=== PATIENT | male | born 1995 | race Caucasian/White ===

== ENCOUNTER 2019-07-19 04:54 | Emergency (ER) | payer SELFPAY ==
[2019-07-19] VITALS (9 sets, daily range): BP systolic 126–175; BP diastolic 96–126; PULSE 69–98; RESP 15–18; TEMP 37; O2SAT 97–100; BMI 25.8
--- NOTE | 2019-07-19 05:00 | CTR_ITS ---
PROCEDURE INFORMATION: Exam: CT Abdomen And Pelvis With Contrast Exam date and time: 07/19/2019 5:20 AM Age: 23 years old Clinical indication: Abdominal pain; Generalized; Additional info: Abd pain TECHNIQUE: Imaging protocol: Computed tomography of the abdomen and pelvis with intravenous contrast. Total DLP: 688.95 mGy-cm Radiation optimization: All CT scans at this facility use at least one of these dose optimization techniques: automated exposure control; mA and/or kV adjustment per patient size (includes targeted exams where dose is matched to clinical indication); or iterative reconstruction. Contrast material: OMNI 300; Contrast volume: 95 ml; Contrast route: 18G; COMPARISON: No relevant prior studies available. FINDINGS: Liver: Normal. No mass. Gallbladder and bile ducts: No calcified stones. No pericholecystic inflammatory changes. No ductal dilation. Pancreas: Normal. No ductal dilation. Spleen: No splenomegaly. Adrenals: Normal. No mass. Kidneys and ureters: Bilateral simple renal cysts measuring up to 16 [id number] not required. Stomach and bowel: No obstruction. No wall thickening. Appendix: Normal appendix. Intraperitoneal space: No free air. No significant fluid collection. Vasculature: No abdominal aortic aneurysm. Lymph nodes: No enlarged lymph nodes. Bladder: Unremarkable as visualized. Reproductive: Unremarkable as visualized. Bones/joints: Unremarkable. No acute fracture. Soft tissues: Unremarkable. CT/CT abdomen pelvis w con* [id number] IMPRESSION: No acute abnormality detected. Radiation Dose CTDIVOL = (mGy): DLP = 688.95 (mGy-cm)
--- NOTE | 2019-07-19 05:02 | ED_ITS ---
Documented by User: Kam Anderson MD 07/19/19 05:33 HPI - Abdominal Pain General: Chief Complaint: Abdominal Pain Stated Complaint: ABD PAIN Time Seen by Provider: 07/19/19 05:00 Source: patient Mode of arrival: ambulatory Limitations: no limitations History of Present Illness: HPI narrative: 23-year-old male has been having left lower abdominal pain that radiates into his testicle for the last week. Patient states that the pain got much worse tonight. States pain is currently a 9 out of 10. He has had nausea and vomiting. He denies any history of kidney stones. He denies any penile discharge. MD elicited complaint: abdominal pain Pertinent past history: none Onset (ago): day(s) Pain Consistency: constant Location: LLQ Severity: severe Quality: stabbing Radiation: none Exacerbating factors: nothing Relieving factors: nothing Associated Symptoms: Reports nausea and vomiting; Denies chills, diarrhea, dysuria and fever(s) Review of Systems Const: Denies: fever, chills, body aches or change in appetite Eyes: Denies: blurry vision or eye discomfort ENMT: Denies: throat pain or dental pain Card: Denies: chest pain Resp: Denies: shortness of breath GI: Reports: abdominal pain, nausea and vomiting; Denies: diarrhea : Reports: testicular pain; Denies: painful urination Musc: Denies: neck pain or back pain Skin/Breast: Denies: rash Neuro: Denies: headache Psych: Denies: depression Gigi/Lymph: Denies: easy bruising All/Imm: Denies: hives PFSH ED PFSH: Social History Smoking and tobacco status: current every day smoker Physical Exam Const: COMMON NORMALS: no apparent distress, oriented x3 and healthy appearing HENMT: COMMON NORMALS: normocephalic and head/scalp atraumatic HEAD & SCALP: normocephalic and atraumatic Eye: COMMON NORMALS: PERRL and EOMs intact bilaterally PUPIL: Yes PERRL Neck/C-Spine: COMMON NORMALS: full ROM and supple Chest: COMMONS NORMALS: inspection of chest normal and palpation of chest normal Resp: COMMON NORMALS: normal respiratory effort, no retractions, no use of accessory muscles and clear to auscultation bilaterally AUSCULTATION: clear to auscultation bilaterally Cardio: COMMON NORMALS: regular rate, regular rhythm and no murmurs RATE: regular rate RHYTHM: regular rhythm GI: COMMON NORMALS: normal to inspection, nondistended, normoactive bowel sounds, soft to palpation and no masses PALPATION: Yes soft OTHER: llq tenderness : OTHER: no testicle swelling, slight tenderness to left testicle Extremity: COMMON NORMALS: normal to inspection and full ROM Neuro: COMMON NORMALS: oriented x3, moves all extremities and no focal motor deficits Psych: COMMON NORMALS: mental status grossly normal, thought process normal and cooperative THOUGHT PROCESS: normal thought process Skin: COMMON NORMALS: no rashes or lesions noted and no wounds GENERAL SKIN EXAM: no rashes or lesions noted Course Vital Signs: Vital signs: Vital Signs Temperature 98.6 F 07/19/19 04:56 Pulse Rate 98 07/19/19 09:23 Respiratory Rate 16 07/19/19 09:23 Blood Pressure 153/104 07/19/19 09:23 Pulse Oximetry 99 07/19/19 09:23 MDM - Abdominal Pain MDM Narrative: Medical decision making narrative: Patient presents with abdominal pain along with testicle pain. Patient does have some tenderness on his abdomen and testicle. We will get a CT scan of his abdomen and an ultrasound of his testicle. Patient's care turned over to Dr. Yepez to follow this along with labs. Lab Data: Labs: Lab Results 07/19/19 07/19/19 07/19/19 Range/Units 05:10 05:49 06:55 WBC 12.4 H (4.0-10.0) 10^3/ uL RBC 5.40 H (4.1-5.3) 10^6/u L Hgb 15.5 (11.7-16.6) g/dL Hct 46.4 (42.0-52.0) % MCV 85.9 (80-94) fL MCH 28.7 (28.0-34.0) pg MCHC 33.4 (30.0-36.0) g/dL RDW 12.6 (12.1-15.1) % Plt Count 390 (130-400) 10^3/c mm MPV 10.2 (7.4-10.4) fL Neut % (Auto) 68.5 % Lymph % (Auto) 21.5 % [place] % (Auto) 8.3 % Eos % (Auto) 1.1 % Baso % (Auto) 0.4 % Neut # (Auto) 8.5 H (1.8-7.7) 10^3/u L Lymph # (Auto) 2.7 (0.8-4.8) 10^3/u L [place] # (Auto) 1.0 H (0.2-0.9) 10^3/u L Eos # (Auto) 0.1 (0.0-0.8) 10^3/u L Baso # (Auto) 0.1 (0.0-0.1) 10^3/u L Nucleated RBC % (a uto) 0 % Nucleated RBCs # 0.0 /100WBC Sodium 137 (136-145) mmol/L Potassium 4.1 (3.5-5.1) mmol/L Chloride 100 (98-107) mmol/L Carbon Dioxide 28 (22-29) mmol/L Anion Gap 13.1 (5-19) BUN 7 (6-20) mg/dL Creatinine 0.6 L (0.7-1.2) mg/dL GFR Calculation 165.5 H (90-130) mL/min Glucose 119 H (65-115) mg/dL Calculated Osmolal ity 281 L (285-295) mOsm/k g Calcium 9.1 (8.5-10.5) mg/dL Total Bilirubin 0.2 (0.15-1.2) mg/dL AST 13 (0-40) U/L ALT 14 (0-41) U/L Alkaline Phosphata se 62 (40-130) IU/L Total Protein 6.9 (6.6-8.7) g/dL Albumin 4.3 (3.5-5.2) g/dL Globulin 2.6 (1.3-4.6) g/dL Lipase 18 (13-60) U/L Urine Color Yellow (Yellow) Urine Appearance Hazy A (CLEAR) Urine pH 7 (5-7) Ur Specific Gravit y 1.005 (1.005-1.030) Urine Protein Neg (Negative) Urine Glucose (UA) Norm (Normal) Urine Ketones Negative (Negative) Urine Blood Neg (Negative) Urine Nitrate Negative (Negative) Urine Bilirubin Neg (NEGATIVE) Urine Urobilinogen Norm (Negative) mg/dL Ur Leukocyte Bailee ase Negative (Negative) Urine RBC None (0-2) /hpf Urine WBC 0-4 H (0-5) /hpf Ur Squamous Epith Cells None (0-5) Urine Bacteria None (NONE) Discharge Plan Discharge Patient Disposition: Home, Self-Care Clinical Impression: Testicular discomfort Condition: Stable Prescriptions: New hydrocodone-acetaminophen 5-325 mg tablet 1 tab PO Q6H PRN (Reason: pain) Qty: 20 RF: 0 Zofran 4 mg tablet 4 mg PO Q6H PRN (Reason: nausea and vomiting) Qty: 10 RF: 0 Discharge Orders: Discharge Order (Routine); Ordered 07/19/19 Ordered By: Alan Simms Referrals: Kayode Curiel MD [Primary Care Provider] - Discharge Diet: Usual diet Discharge Activity: Increase activity as tolerated Discharge Date/Time: 07/19/19 09:30 Sign Out Sign Out Data: Patient Sign Out occurred on 07/19/19 at 06:05. Patient's care was discussed, and care was transferred from to Alan Simms DO. Coding Level of Care Code ED Punch Out Crew Member for Chg Fwd Exam Comprehensive Documented by User: Alan Simms DO 07/21/19 23:13 HPI - Abdominal Pain General: Chief Complaint: Abdominal Pain Stated Complaint: ABD PAIN Time Seen by Provider: 07/19/19 05:00 [facility] ED PFSH: Social History Smoking and tobacco status: current every day smoker Course ED course: CT is unremarkable so far were not really finding anything with reviewed this with him. At this point I do not think there is a lot more that we can do I also called and discussed with Dr. Alicea. He recommends analgesics and then follow-up with him in the office next week suspect a good amount of this may resolve on its own along with the pain medications. Also advised ice limit activity return if has significant worsening or develops other symptoms. Vital Signs: Vital signs: Vital Signs Temperature 98.6 F 07/19/19 04:56 Pulse Rate 98 07/19/19 09:23 Respiratory Rate 16 07/19/19 09:23 Blood Pressure 153/104 07/19/19 09:23 Pulse Oximetry 99 07/19/19 09:23 MDM - Abdominal Pain Lab Data: Labs: Lab Results 07/19/19 07/19/19 07/19/19 Range/Units 05:10 05:49 06:55 WBC 12.4 H (4.0-10.0) 10^3/ uL RBC 5.40 H (4.1-5.3) 10^6/u L Hgb 15.5 (11.7-16.6) g/dL Hct 46.4 (42.0-52.0) % MCV 85.9 (80-94) fL MCH 28.7 (28.0-34.0) pg MCHC 33.4 (30.0-36.0) g/dL RDW 12.6 (12.1-15.1) % Plt Count 390 (130-400) 10^3/c mm MPV 10.2 (7.4-10.4) fL Neut % (Auto) 68.5 % Lymph % (Auto) 21.5 % [place] % (Auto) 8.3 % Eos % (Auto) 1.1 % Baso % (Auto) 0.4 % Neut # (Auto) 8.5 H (1.8-7.7) 10^3/u L Lymph # (Auto) 2.7 (0.8-4.8) 10^3/u L [place] # (Auto) 1.0 H (0.2-0.9) 10^3/u L Eos # (Auto) 0.1 (0.0-0.8) 10^3/u L Baso # (Auto) 0.1 (0.0-0.1) 10^3/u L Nucleated RBC % (a uto) 0 % Nucleated RBCs # 0.0 /100WBC Sodium 137 (136-145) mmol/L Potassium 4.1 (3.5-5.1) mmol/L Chloride 100 (98-107) mmol/L Carbon Dioxide 28 (22-29) mmol/L Anion Gap 13.1 (5-19) BUN 7 (6-20) mg/dL Creatinine 0.6 L (0.7-1.2) mg/dL GFR Calculation 165.5 H (90-130) mL/min Glucose 119 H (65-115) mg/dL Calculated Osmolal ity 281 L (285-295) mOsm/k g Calcium 9.1 (8.5-10.5) mg/dL Total Bilirubin 0.2 (0.15-1.2) mg/dL AST 13 (0-40) U/L ALT 14 (0-41) U/L Alkaline Phosphata se 62 (40-130) IU/L Total Protein 6.9 (6.6-8.7) g/dL Albumin 4.3 (3.5-5.2) g/dL Globulin 2.6 (1.3-4.6) g/dL Lipase 18 (13-60) U/L Urine Color Yellow (Yellow) Urine Appearance Hazy A (CLEAR) Urine pH 7 (5-7) Ur Specific Gravit y 1.005 (1.005-1.030) Urine Protein Neg (Negative) Urine Glucose (UA) Norm (Normal) Urine Ketones Negative (Negative) Urine Blood Neg (Negative) Urine Nitrate Negative (Negative) Urine Bilirubin Neg (NEGATIVE) Urine Urobilinogen Norm (Negative) mg/dL Ur Leukocyte Bailee ase Negative (Negative) Urine RBC None (0-2) /hpf Urine WBC 0-4 H (0-5) /hpf Ur Squamous Epith Cells None (0-5) Urine Bacteria None (NONE) Discharge Plan Discharge Patient Disposition: Home, Self-Care Clinical Impression: Testicular discomfort Condition: Stable Prescriptions: New hydrocodone-acetaminophen 5-325 mg tablet 1 tab PO Q6H PRN (Reason: pain) Qty: 20 RF: 0 Zofran 4 mg tablet 4 mg PO Q6H PRN (Reason: nausea and vomiting) Qty: 10 RF: 0 Discharge Orders: Discharge Order (Routine); Ordered 07/19/19 Ordered By: Alan Simms Referrals: Kayode Curiel MD [Primary Care Provider] - Discharge Diet: Usual diet Discharge Activity: Increase activity as tolerated Discharge Date/Time: 07/19/19 09:30 Sign Out Sign Out Data: Patient Sign Out occurred on 07/19/19 at 06:05. Patient's care was discussed, and care was transferred from to Alan Simms DO. Coding Level of Care Code ED Punch Out Crew Member for Chg Fwd Exam Comprehensive
[2019-07-19] MEDS: HYDROmorphone 1 mg/mL INJ 1 mL IVP ×2 (05:09→06:36)
[2019-07-19] MEDS: ondansetron 2 mg/ML SDV 2 mL 4 MG IVP (05:09)
[2019-07-19] MEDS: sodium chloride 0.9% 1,000 ML 999 ML IV (05:09)
[2019-07-19] MEDS: iohexol 300 mg/mL 100 mL Btl IV (05:22)
--- NOTE | 2019-07-19 05:31 | US_ITS ---
WS: [id number] Scrotal and testicular ultrasound, 07/19/2019 Clinical Data: testicle pain Comparison: Scrotal and testicular ultrasound, 09/27/2013 Findings: The right testes measures 4.6 cm x 2.6 cm x 2.3 cm. The left testes measures 4.6 cm x 2.9 cm x 2.2 cm. The right epididymis measured 0.96 cm and the left 0.79 cm. No epididymitis was seen. There is normal bilateral blood flow with no evidence of orchitis or torsion. No masses or abnormal calcifications are noted. There are varicosities in the left inguinal canal with a left inguinal hernia. US/US scrotum [id number] Impression: Negative scrotal and testicular ultrasound.
[2019-07-19 05:39] LABS: Basophils # 0.1 10^3/uL (0.0-0.1); Basophils % 0.4 %; Eosinophils # 0.1 10^3/uL (0.0-0.8); Eosinophils % 1.1 %; Hematocrit 46.4 % (42.0-52.0); Hemoglobin 15.5 g/dL (11.7-16.6); Lymphocytes # 2.7 10^3/uL (0.8-4.8); Lymphocytes % 21.5 %; Mean Corpuscular HGB Conc 33.4 g/dL (30.0-36.0); Mean Corpuscular Hemoglobin 28.7 pg (28.0-34.0); Mean Corpuscular Volume 85.9 fL (80-94); Mean Platelet Volume 10.2 fL (7.4-10.4); Monocytes % 8.3 %; Neutrophils # 8.5 10^3/uL (1.8-7.7); Neutrophils % 68.5 %; Nucleated Red Blood Cells % 0 %; Platelet Count 390 10^3/cmm (130-400); Red Cell Distribution Width 12.6 % (12.1-15.1); White Blood Count 12.4 10^3/uL (4.0-10.0)
[2019-07-19] MEDS: hyDRALAzine 20 mg/mL INJ 1 mL 10 MG IVP (06:04)
[2019-07-19 06:09] LABS: Alanine Aminotransferase 14 U/L (0-41); Albumin Level 4.3 g/dL (3.5-5.2); Alkaline Phosphatase 62 IU/L (40-130); Anion Gap 13.1 (5-19); Aspartate Amino Transferase 13 U/L (0-40); Blood Urea Nitrogen 7 mg/dL (6-20); Calcium 9.1 mg/dL (8.5-10.5); Carbon Dioxide 28 mmol/L (22-29); Chloride 100 mmol/L (98-107); Globulin 2.6 g/dL (1.3-4.6); Glomerular Filtration Rate 165.5 mL/min (90-130); Glucose 119 mg/dL (65-115); Lipase 18 U/L (13-60); Osmolality Calculated 281 mOsm/kg (285-295); Potassium 4.1 mmol/L (3.5-5.1); Sodium 137 mmol/L (136-145); Total Bilirubin 0.2 mg/dL (0.15-1.2); Total Protein 6.9 g/dL (6.6-8.7)
[2019-07-19] MEDS: HYDROmorphone 1 mg/mL INJ 1 mL 0.5 MG IVP (06:50)
[2019-07-19 07:05] LABS: Add Urine Microscopic? YES; Bilirubin Urine Neg (NEGATIVE); Blood Urine Neg (Negative); Glucose Urine UA Norm (Normal); Ketones Urine Negative (Negative); Leukocyte Esterase Urine Negative (Negative); Nitrate Urine Negative (Negative); Protein Urine Neg (Negative); Specific Gravity, Urine 1.005 (1.005-1.030); Urine Appearance Hazy (CLEAR); Urine Color Yellow (Yellow); Urobilinogen Urine Norm (Negative); pH Urine 7 (5-7)
[2019-07-19 07:16] LABS: Add Urine Culture? No; WBC Urine 0-4 /hpf (0-5)
[2019-07-19] MEDS: ketorolac 30 mg/mL INJ IVP (07:41)
--- NOTE | 2019-07-19 08:04 | DCPLANNER ---
right of way manager was asked to refer patient to Dr. Alicea. right of way manager called the office of Dr. Alicea, spoke with Alyson, gave clinic patients information, was told that patients information would be printed and given to Radhika for review. Clinic will call patient with appointment information, assistant case manager will call for appointment information.
--- NOTE | 2019-07-25 09:41 | DCPLANNER ---
Alyson from Dr. Vaughan office, called child welfare caseworker and stated that patient does not need to be seen by Dr. Alicea.
== END 2019-07-19 09:30 | disposition home or self-care (01) ==
PROVIDERS: Emergency Medicine; Emergency Provider Family Medicine; Family Provider Family Medicine; PCP Family Medicine
DX: N50.812 Left testicular pain (principal); F17.200 Nicotine dependence, unspecified, uncomplicated
CPT/HCPCS: 12345; 36415; 74177; 76870; 80053; 81001; 83690; 85025; 96360; 96361; 96374; 96375; 96376; 99283; 99284; J0360; J1170; J1885; J2405; J7030; Q9967

== ENCOUNTER 2019-08-03 05:38 | Emergency (ER) | payer SELFPAY ==
[2019-08-03] VITALS (7 sets, daily range): BP systolic 134–161; BP diastolic 79–109; PULSE 70–93; RESP 14–18; TEMP 37; O2SAT 96–100; BMI 25.8
--- NOTE | 2019-08-03 05:41 | PC.NURSE ---
PATIENT STATES HE HAS BEEN VOMITING BLOOD, HAS LEFT SIDED ABDOMINAL PAIN WITH RADIATING PAIN TO BILATERAL TESTICLES. PATIENT STATES HE WAS ASLEEP AND WOKE UP TO THE PAIN, PATIENT STATES THAT HE PAIN COMES AND GOES. PATIENT STATES HE HAS HAD SIMILAR PAIN IN THE PAST.
--- NOTE | 2019-08-03 05:50 | W.ED.ABDPA2 ---
HPI - Abdominal Pain General: Chief Complaint: Abdominal Pain Stated Complaint: ABD PAIN Time Seen by Provider: 08/03/19 05:50 History of Present Illness: HPI narrative: 23-year-old male presents for the second time in 2 weeks. He complains of left-sided mainly belly pain stretching from his scrotum to his chest. He had been seen for left-sided inguinal pain 2 weeks ago. At that time he was not vomiting and his belly was not overly tender. He states that he has vomited blood several times since 10 PM. MD elicited complaint: abdominal pain Pertinent past history: none Onset (ago): week(s) (2) Pain Consistency: constant Location: LUQ, LLQ and Groin (L) Quality: stabbing Relieving factors: nothing Associated Symptoms: Reports chills, nausea and vomiting; Denies dysuria, fever(s), hematochezia, hematuria and melena Review of Systems Const: Reports: chills; Denies: fever Eyes: Denies: change in vision or blurry vision ENMT: Denies: painful swallowing, swelling of lips/tongue, post nasal drip or facial/sinus pain Card: Denies: chest pain, palpitations, edema or swelling of feet/ankles Resp: Denies: shortness of breath, productive cough, non-productive cough or wheezing GI: Reports: abdominal pain, nausea and vomiting; Denies: rectal pain, blood in stool or black tarry stool : Denies: difficulty urinating, painful urination, urinary frequency, urinary urgency or blood in urine Musc: Denies: neck pain, back pain, redness or joint warmth Skin/Breast: Denies: rash, itching or redness Neuro: Denies: headache, dizziness, vertigo or confusion Psych: Denies: anxiety PFSH ED PFSH: Social History Smoking and tobacco status: current every day smoker Physical Exam Const: GENERAL APPEARANCE: well developed ORIENTATION/CONSCIOUSNESS: Yes oriented to person, Yes oriented to place and Yes oriented to time HENMT: COMMON NORMALS: normocephalic, external ears normal and external nose normal HEAD & SCALP: normocephalic FACE & SINUS: normal facial exam NOSE: external nose normal and no nasal discharge EXTERNAL EAR: Yes external ears normal MOUTH: tongue normal TEETH & GINGIVA: no abnormal tooth and associated gingiva THROAT: posterior oropharynx normal; no peritonsillar mass Eye: COMMON NORMALS: PERRL, EOMs intact bilaterally and conjunctivae normal EYELID: eyelids normal CONJUNCTIVA: Yes conjunctivae normal PUPIL: Yes PERRL Neck/C-Spine: COMMON NORMALS: full ROM GENERAL: No tracheal deviation Chest: COMMONS NORMALS: inspection of chest normal CHEST: No tenderness Resp: COMMON NORMALS: clear to auscultation bilaterally EFFORT & INSPECTION: No tachypneic, No respiratory distress, No retractions, No uses accessory muscles and No tracheal deviation AUSCULTATION: clear to auscultation bilaterally, no rhonchi, no wheezes and lung sounds not diminished Cardio: COMMON NORMALS: regular rate and regular rhythm RATE: regular rate RHYTHM: regular rhythm HEART SOUNDS: no murmurs PERIPHERAL PULSES: radial pulses present GI: INSPECTION: No abdominal distension AUSCULTATION: No hyperactive bowel sounds and No hypoactive bowel sounds PALPATION: Yes tender (L>R), Yes guarding and No rigid PERCUSSION: no dullness to percussion and no tympanic to percussion Neuro: SENSORIUM/ORIENTATION: Yes oriented to person, Yes oriented to place and Yes oriented to time Psych: COMMON NORMALS: mental status grossly normal Skin: COMMON NORMALS: no rashes or lesions noted GENERAL SKIN EXAM: no rashes or lesions noted Course Vital Signs: Vital signs: Vital Signs Temperature 98.6 F 08/03/19 05:41 Pulse Rate 77 08/03/19 05:52 Respiratory Rate 14 08/03/19 06:09 Blood Pressure 150/101 08/03/19 05:52 Pulse Oximetry 99 08/03/19 06:09 MDM - Abdominal Pain MDM Narrative: Medical decision making narrative: 23-year-old male seen prior for left inguinal pain. He comes in with left-sided belly pain and vomiting of blood. Labs and CT are pending. He will be checked out to Dr. Simms for follow-up on labs and CT at shift change. Discharge Plan Discharge Prescriptions: No Action No Known Home Medications RF: 0 Coding Level of Care Code ED Inspector Subassemblies for Chg Fwd Exam Comprehensive
--- NOTE | 2019-08-03 05:59 | CTR_ITS ---
PROCEDURE INFORMATION: Exam: CT Abdomen And Pelvis With Contrast Exam date and time: 08/03/2019 6:08 AM Age: 23 years old Clinical indication: Abdominal pain; Localized; Left; Additional info: L abd pain TECHNIQUE: Imaging protocol: Computed tomography of the abdomen and pelvis with intravenous contrast. Total DLP: 731.33 mGy-cm Radiation optimization: All CT scans at this facility use at least one of these dose optimization techniques: automated exposure control; mA and/or kV adjustment per patient size (includes targeted exams where dose is matched to clinical indication); or iterative reconstruction. Contrast material: OMNI 300; Contrast volume: 95 ml; Contrast route: RT AC; COMPARISON: CT abdomen pelvis w con* [id number] 07/19/2019 5:36 AM FINDINGS: Liver: Normal. No mass. Gallbladder and bile ducts: Normal. No calcified stones. No ductal dilation. Pancreas: Normal. No ductal dilation. Spleen: Normal. No splenomegaly. Adrenals: Normal. No mass. Kidneys and ureters: Numerous simple appearing renal cyst bilaterally largest of approximately 15 mm. Stomach and bowel: Moderate amount stool within the large bowel. Appendix: Appendix normal. Intraperitoneal space: No free fluid within the pelvis or within the dependent portions of the peritoneum. Vasculature: Unremarkable. No abdominal aortic aneurysm. Lymph nodes: Unremarkable. No enlarged lymph nodes. Bladder: Unremarkable as visualized. Reproductive: Unremarkable as visualized. Bones/joints: Unremarkable. No acute fracture. Soft tissues: Unremarkable. Other findings: No acute intra-abdominal process. No inflammatory process. No obstruction. CT/CT abdomen pelvis w con* [id number] IMPRESSION: 1. No acute intra-abdominal process. No inflammatory process. No obstruction. 2. No free fluid within the pelvis or within the dependent portions of the peritoneum. 3. Appendix normal. COMMENTS: Consistent with the [employer]'s Incidental Findings Committee white paper (J Am Deni Radiol 2018): Any incidental cystic renal lesion classified in this report as too small to characterize or simple appearing is likely a benign cyst. No follow-up imaging is recommended for these lesions per consensus recommendations based on imaging criteria. Radiation Dose CTDIVOL = (mGy): DLP = 731.33 (mGy-cm)
[2019-08-03] MEDS: morphine 4 mg/mL SDV 1 mL IVP (06:09)
[2019-08-03] MEDS: sodium chloride 0.9% 1,000 ML 999 ML IV (06:09)
[2019-08-03] MEDS: ondansetron 2 mg/ML SDV 2 mL 4 MG IVP (06:09)
[2019-08-03 06:18] LABS: Basophils # 0.1 10^3/uL (0.0-0.1); Basophils % 0.5 %; Eosinophils % 0.3 %; Hematocrit 45.7 % (42.0-52.0); Hemoglobin 14.9 g/dL (11.7-16.6); Lymphocytes # 2.1 10^3/uL (0.8-4.8); Lymphocytes % 13.9 %; Mean Corpuscular HGB Conc 32.6 g/dL (30.0-36.0); Mean Corpuscular Hemoglobin 29.2 pg (28.0-34.0); Mean Corpuscular Volume 89.4 fL (80-94); Mean Platelet Volume 9.5 fL (7.4-10.4); Monocytes # 0.7 10^3/uL (0.2-0.9); Monocytes % 4.8 %; Neutrophils % 80.2 %; Nucleated Red Blood Cells % 0 %; Platelet Count 382 10^3/cmm (130-400); Red Blood Count 5.11 10^6/uL (4.1-5.3); Red Cell Distribution Width 12.5 % (12.1-15.1); White Blood Count 14.9 10^3/uL (4.0-10.0)
[2019-08-03] MEDS: iohexol 300 mg/mL 100 mL Btl IV (06:24)
--- NOTE | 2019-08-03 06:25 | PC.NURSE ---
PATIENT TO CT
[2019-08-03 06:38] LABS: Alanine Aminotransferase 25 U/L (0-41); Albumin Level 4.8 g/dL (3.5-5.2); Alkaline Phosphatase 60 IU/L (40-130); Anion Gap 13.8 (5-19); Aspartate Amino Transferase 17 U/L (0-40); Blood Urea Nitrogen 10 mg/dL (6-20); C Reactive Protein 2.1 mg/L (0.0-4.9); Calcium 9.9 mg/dL (8.5-10.5); Carbon Dioxide 30 mmol/L (22-29); Chloride 97 mmol/L (98-107); Creatinine Clr Calc Pharmacy 153.9795; Globulin 2.5 g/dL (1.3-4.6); Glomerular Filtration Rate 118.8 mL/min (90-130); Glucose 130 mg/dL (65-115); Lipase 20 U/L (13-60); Osmolality Calculated 282 mOsm/kg (285-295); Potassium 3.8 mmol/L (3.5-5.1); Sodium 137 mmol/L (136-145); Total Bilirubin 0.2 mg/dL (0.15-1.2); Total Protein 7.3 g/dL (6.6-8.7)
--- NOTE | 2019-08-03 06:39 | PC.NURSE ---
PATIENT GIVEN URINAL AND ENCOURAGED TO PEE IN IT FOR A URINE SAMPLE.
[2019-08-03 07:03] LABS: Erythrocyte Sedimentation Rate 7 mm/hr (0-10)
[2019-08-03 07:54] LABS: Add Urine Microscopic? YES; Bilirubin Urine Neg (NEGATIVE); Blood Urine Neg (Negative); Glucose Urine UA Norm (Normal); Ketones Urine Negative (Negative); Leukocyte Esterase Urine Negative (Negative); Nitrate Urine Negative (Negative); Protein Urine Neg (Negative); Urine Appearance SL Hazy (CLEAR); Urine Color Yellow (Yellow); Urobilinogen Urine Norm (Negative); pH Urine 7 (5-7)
[2019-08-03 07:56] LABS: Amorphous Sediment Urine 1+; Bacteria Urine TRACE; Squamous Epithelial Cell Urine 0-4 (0-5)
[2019-08-03 07:57] LABS: Add Urine Culture? No
--- NOTE | 2019-08-05 14:04 | DCPLANNER ---
dialysis clinical manager had message to schedule a follow up appointment for patient with Dr. Alicea. dialysis clinical manager called the office of Dr. Alicea, spoke with Alyson. dialysis clinical manager was told that patients information would be printed and given to Radhika for review. Clinic will call patient with appointment information. dialysis clinical manager will call for appointment information.
--- NOTE | 2019-08-07 14:25 | DCPLANNER ---
metrology manager had message to schedule a follow up appointment for patient with Dr. Rdz. metrology manager called the office of Dr. Rdz, spoke with Kellee, gave clinic patients information. metrology manager was told that patients information would be printed and reviewed. Clinic will call patient with appointment information. metrology manager will call for appointment information.
--- NOTE | 2019-09-05 12:14 | DCPLANNER ---
ultrasound manager called the office of Dr. Alicea to confirm if an appointment had been scheduled for patient. ultrasound manager spoke with Stephani, was told that patient told clinic that patient was going to go to [facility], and would make an appointment when he got back if one was needed. ultrasound manager called the office of Dr. Rdz about follow up appointment, clinical case manager was told that an appointment had not been scheduled for patient.
== END 2019-08-03 08:39 | disposition home or self-care (01) ==
PROVIDERS: Emergency Medicine; Emergency Provider Family Medicine; Family Provider Family Medicine; PCP Family Medicine
DX: R10.32 Left lower quadrant pain (principal); N50.812 Left testicular pain; R04.2 Hemoptysis; F17.200 Nicotine dependence, unspecified, uncomplicated
CPT/HCPCS: 12345; 36415; 74177; 80053; 81001; 83690; 85025; 85651; 86140; 96360; 96361; 96374; 96375; 99283; A9270; J2270; J2405; J7030; Q9967

== ENCOUNTER 2019-12-10 19:48 | Emergency (ER) | payer SELFPAY ==
[2019-12-10 20:01] VITALS: BP 160/110; PULSE 96; RESP 18; TEMP 37; O2SAT 98; BMI 22.9
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
[2019-12-10 20:18] VITALS: BP 145/103; PULSE 95; RESP 16; O2SAT 99
[2019-12-10] MEDS: HYDROcodone-acetaminophen 7.5-325 mg Tablet 1 TAB PO (20:30)
[2019-12-10 21:51] VITALS: RESP 16
[2019-12-10] MEDS: oxyCODONE-APAP 10-325 mg Tablet 1 TAB PO (21:51)
[2019-12-10] MEDS: clindamycin 150 mg Capsule 300 MG PO (22:51)
[2019-12-10 22:52] VITALS: RESP 16
[2019-12-10] MEDS: oxyCODONE-APAP 5-325 mg Tablet 1 TAB PO (22:52)
== END 2019-12-10 22:56 | disposition home or self-care (01) ==
PROVIDERS: Emergency Provider Physician Assistant; PCP Family Medicine
DX: S02.609B Fracture of mandible, unspecified, initial encounter for open fracture (principal); Y04.2XXA Assault by strike against or bumped into by another person, initial encounter; F17.210 Nicotine dependence, cigarettes, uncomplicated
CPT/HCPCS: 12345; 70450; 70486; 99281; 99283

== ENCOUNTER 2019-12-13 17:28 | Emergency (ER) | payer SELFPAY ==
[2019-12-13 17:31] VITALS: BP 164/104; PULSE 111; RESP 18; TEMP 36.2; O2SAT 98
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
[2019-12-13] MEDS: HYDROcodone-acetaminophen 7.5-325 mg Tablet 1 TAB PO (18:16)
[2019-12-13 18:17] VITALS: BP 162/102; PULSE 108; RESP 18; O2SAT 98
== END 2019-12-13 18:22 | disposition home or self-care (01) ==
PROVIDERS: Emergency Provider Emergency Medicine; PCP Family Medicine
DX: S02.609A Fracture of mandible, unspecified, initial encounter for closed fracture (principal); Y09 Assault by unspecified means; F17.210 Nicotine dependence, cigarettes, uncomplicated
CPT/HCPCS: 12345; 99281; 99283